=== PATIENT | female | born 1965 | race Caucasian/White ===

== ENCOUNTER 2022-08-11 09:19 | Emergency (ER) | payer OTHER, SELFPAY ==
[2022-08-11 09:26] VITALS: BP 110/82; PULSE 85; RESP 16; TEMP 36.3; O2SAT 100
--- NOTE | 2022-08-11 09:29 | ED.URI ---
HPI - URI/Sore Throat General Chief Complaint: Upper Respiratory Infection Stated Complaint: cough Time Seen by Provider: 08/11/22 09:29 Source: patient Mode of arrival: ambulatory Limitations: no limitations History of Present Illness HPI Narrative: 56-year-old female presented for complaint of coughing for 1 week and endorses difficulty sleeping at night due to the cough. She felt a rattle in her chest with the cough. Endorses about 2 days ago she spiked a fever of 101 and had a negative COVID test at home. Denies sob, wheezing, n/v/d. Taking Advil cold & sinus for symptoms. Denies sick contacts. Related Data Home Medications Medication Instructions Recorded Confirmed aspirin 81 mg tablet,delayed 81 mg PO DAILY 04/19/22 05/08/22 release (Adult Aspirin Regimen) cholecalciferol (vitamin D3) 250 250 mcg PO DAILY 04/19/22 05/08/22 mcg (10,000 unit) capsule fenofibrate 50 mg capsule 50 mg PO DAILY 04/19/22 05/08/22 multivitamin 1 tablet PO DAILY 04/19/22 05/08/22 vitamin E 200 unit capsule 200 unit PO DAILY 04/19/22 05/08/22 Allergies Allergy/AdvReac Type Severity Reaction Status Date / Time No Known Allergies Allergy Unknown Verified 05/08/22 07:38 Review of Systems Review of Systems: CONSTITUTIONAL: Denies body aches, fever, chills, or sweats. EYES: Denies visual changes, redness, or discharge. ENT: reports rhinorrhea, congestion, denies sore throat, or otalgia. CARDIOVASCULAR: Denies chest pain, palpitations, or edema. RESPIRATORY: Reports cough denies sob, wheezing. SKIN: Denies rash, itching, or wounds. MUSCULOSKELETAL: Denies back pain, joint pain, or myalgia. NEUROLOGIC: Denies headache, numbness, tingling, or weakness. All systems reviewed & are unremarkable except as noted in HPI and below PMFSH Family History Family History Father Hypertension Patient's father is in good health Diabetes mellitus Heart disease Sibling Patient's brother is in good health Mother Family history of malignant neoplasm of uterus Social History Social History Smoking status: Never smoker Alcohol intake: never Substance use: never Comments At time of signature, I have reviewed and agree with nursing past medical, surgical, social and family history unless otherwise noted. Please see nursing chart for further information. There is no relevant family history pertinent to the presenting complaint Exam Narrative: GENERAL: Well-appearing EYES: EOMI. No redness or drainage. Conjunctivae normal. ENT: Mucous membranes pink and moist. No rhinorrhea. TMs normal bilaterally. Throat normal. Uvula midline. CHEST: No respiratory distress. LCTAB HEART: Regular rate and rhythm. No murmur appreciated. ABDOMEN: Soft, nontender, nondistended, normal active bowel sounds. SKIN: Warm, dry, no rash. Capillary refill normal. Normal skin turgor. NEURO: Alert and oriented x3. Gait steady. PSYCH: Normal affect. Course Course Emergency Course: Patient is aware of diagnosis, understands and agrees to treatment plan. Anticipatory guidance given. Patient agrees to follow-up as directed and is aware of reasons to seek care at the emergency department. Portions of this record may have been created with voice recognition software Level of Care: Express Care Visit Vital Signs Vital signs: Vital Signs Temperature 97.4 F L 08/11/22 09:26 Pulse Rate 85 08/11/22 09:26 Respiratory Rate 16 08/11/22 09:26 Blood Pressure 110/82 08/11/22 09:26 Pulse Oximetry 100 08/11/22 09:26 Temperature 97.4 F L 08/11/22 09:26 Pulse Rate 85 08/11/22 09:26 Respiratory Rate 16 08/11/22 09:26 Blood Pressure 110/82 08/11/22 09:26 Pulse Oximetry 100 08/11/22 09:26 MDM - URI/Sore Throat MDM Narrative Medical decision making narrative: Advised supportive measures for bronchitis, revie
== END 2022-08-11 09:46 | disposition home or self-care (01) ==
PROVIDERS: Emergency Provider Nurse Practitioner Family; PCP Nurse Practitioner Family
DX: R05.9 Cough, unspecified (principal); J40 Bronchitis, not specified as acute or chronic
CPT/HCPCS: 99213; G0463

== ENCOUNTER → 2023-01-17 09:08 | Outpatient (CLI) | payer OTHER, SELFPAY ==
--- NOTE | ~2023-01-17 | XR_ITS ---
XR knee LT min 4V 01/17/2023 09:28 Indication: Left knee pain Procedure: 4 views left knee Comparison: No prior studies for comparison. Findings: No fracture, subluxation or dislocation. No significant joint effusion. No foreign bodies. No joint space narrowing. Impression: 1: No significant bone or joint abnormality. Reviewed, dictated and finalized at location L. TY SHERIFF/INVESTIGATOR Impression: 1: No significant bone or joint abnormality.
== END ==
PROVIDERS: PCP Family Medicine; Visit Provider Nurse Practitioner Family
DX: M25.562 Pain in left knee (principal)
CPT/HCPCS: 73564

== ENCOUNTER → 2023-08-29 09:23 | Outpatient (CLI) | payer OTHER, SELFPAY ==
--- NOTE | ~2023-08-29 | XR_ITS ---
XR_CERV2-3V_CR DATE: 08/29/2023 09:56 INDICATION: Neck pain TECHNIQUE: Standing AP, open-mouth and lateral views COMPARISON: None FINDINGS: C1 and C2 are normally aligned and the odontoid process is intact. No fracture or dislocati on or locked facet or prevertebral soft tissue swelling. There is mild degenerative disc disease at C3-4 and C4-5 and moderately prominent degenerative disc d isease and posterior spurring at C5-6 and C6-7. Uncovertebral joint spurring is noted, particularly at C5-6 and C6-7. IMPRESSION: Moderate cervical spondylosis; no fracture or dislocation or locked facet Reviewed, dictated and finalized at Location [facility]. Reviewed, dictated and finalized at location L.
--- NOTE | ~2023-08-29 | XR_ITS ---
XR knee LT min 4V DATE: 08/29/2023 09:56 INDICATION: Left knee pain TECHNIQUE: 4 views including crosstable lateral and sunrise COMPARISON: January 17, 2023 left knee FINDINGS: No fracture or dislocation or joint effusion. No periosteal reaction or bone destruction. N o radiopaque intra-articular loose body or chondrocalcinosis. IMPRESSION: No significant abnormality or significant change Reviewed, dictated and finalized at location L.
== END ==
PROVIDERS: PCP Nurse Practitioner Family; Visit Provider Nurse Practitioner Family
DX: M25.562 Pain in left knee (principal); M47.892 Other spondylosis, cervical region
CPT/HCPCS: 72040; 73564

== ENCOUNTER → 2023-09-06 13:24 | Outpatient (CLI) | payer OTHER, SELFPAY ==
--- NOTE | ~2023-09-06 | MR_ITS ---
MRI of the left knee Clinical history: Pain Technique: Coronal proton density and proton density-weighted images, sagittal proton-density and T2 fat-sat images, and axial proton-density fat-saturated images were acquired. Findings: Anterior and posterior cruciate ligaments are intact. Medial collateral ligament and the la teral collateral ligament complex are intact. Popliteus tendon is intact. There is extensive horizontal tear throughout the entirety of the lateral meniscus. There is associat ed developing 1.0 x 0.8 x 1.8 cm parameniscal cyst adjacent to the anterior horn of the lateral menis cus. No medial meniscal tear identified. Mild chondromalacia patella. Remaining articular cartilage is well preserved. Bone marrow signals are unremarkable. Extensor mechanism is intact. No significant joint effusion or Chaudhari's cyst. Impression: Extensive horizontal tear of the lateral meniscus with associated 1.0 x 0.8 x 1.8 cm para-meniscal cy st. Please see details above. Reviewed, dictated and finalized at [facility]. Impression: Extensive horizontal tear of the lateral meniscus with associated 1.0 x 0.8 x 1 .8 cm para-meniscal cyst. Please see details above.
== END ==
PROVIDERS: PCP Nurse Practitioner Family; Visit Provider Nurse Practitioner Family
DX: S83.282A Other tear of lateral meniscus, current injury, left knee, initial encounter (principal); X58.XXXA Exposure to other specified factors, initial encounter
CPT/HCPCS: 73721

== ENCOUNTER → 2023-09-23 10:17 | Outpatient (CLI) | payer OTHER, SELFPAY ==
--- NOTE | ~2023-09-23 | DEXA_ITS ---
Bone Density Report Name: CATRACHITO BRUNO Age: 57 Sex: Female Ethnicity: White Date of : 1965 Indication: postmenopausal; screening for osteoporosis; Referring Provider: Martina, Delfina Coleman Study: Bone densitometry was performed. Exam Date: September 23, 2023 Accession number: [id number] Bone Density: Region BMD T-score Z-score Classification AP Spine (L1-L4) 0.776 -2.5 -1.3 Osteoporosis Femoral Neck (Left) 0.766 -0.7 0.4 Normal Total Hip (Left) 0.954 0.1 0.8 Normal Femoral Neck (Right) 0.825 -0.2 0.9 Normal Total Hip (Right) 0.969 0.2 0.9 Normal Total Hip Mean 0.962 0.2 0.9 Normal World Health Organization criteria for BMD impression classify patients as: Normal (T-score at or above -1.0), Osteopenia (T-score between -1.0 and -2.5), or Osteoporosis (T-score at or below -2.5). 10-year Fracture Risk: FRAX not reported because: Some T-score for Spine Total or Hip Total or Femoral Neck at or below -2.5 Clinical Information Provided by Patient: Has used the following medications: Vitamin D, MTV Patient maximum height was 63.5 Menopause Age: 57 Drinks caffeinated beverages Onset of menses at age 17 Number of children 2 Missed period for more than 6 months in a row Impression: The patient has osteoporosis, based on the Total Spine T-score. Discussion: INCREASED RISK OF FRACTURE. BONE DENSITY IS UNDESIRABLY LOW AT ONE OR MORE SKELETAL SITES, CONSISTENT WITH POSTMENOPAUSAL OSTEOPOROSIS. This patient's lowest T-score meets the World Health Organization's (WHO) criteria for osteoporosis at one or more sites (T-score -2.5 or below). In untreated patients, the risk of osteoporotic fracture increases approximately two-fold for each 1.0 SD decrease in T-score. Low bone density is not the only risk factor for fracture; also consider factors such as patient's age, frailty or poor health, risk of falling, risk of injury, previous osteoporotic fracture, family history of osteoporosis, cigarette smoking, low body weight, etc. Not everyone with low bone mineral density has osteoporosis; osteomalacia and other metabolic bone disorders should also be considered. Patients who have osteoporosis should be evaluated for specific diseases and conditions (secondary causes) that may cause or contribute to bone loss. The [place] Association of Clinical Endocrinologists (AACE) and National Osteoporosis Foundation (NOF) recommend pharmacologic intervention for all postmenopausal women whose T-score is in this range. The patient should follow a healthful lifestyle (good nutrition with adequate calcium and vitamin D, and appropriate weight-bearing exercise). Follow-Up: Consider a repeat BMD and Vertebral Fracture Assessment (VFA) exam in 2 years or sooner if medically necessary, to reassess this patient's status.
== END ==
PROVIDERS: PCP Nurse Practitioner Family; Visit Provider Nurse Practitioner Obstetrics & Gynecology
DX: M85.88 Other specified disorders of bone density and structure, other site (principal); Z78.0 Asymptomatic menopausal state
CPT/HCPCS: 77080

== ENCOUNTER 2023-11-13 03:31 | Day surgery (SDC) | payer OTHER, SELFPAY ==
[2023-11-07 15:12] VITALS: BMI 26.1
--- NOTE | 2023-11-11 13:17 | PC.NURSE ---
Report to the Outpatient Waiting Room, entrance under the green pavilion located off [facility], at time _1130___ on date _11/13/23__. Planned Procedure Time: 1330 . Time changes happen often and if your time is changed the preop area will call you the afternoon before. - You and your visitor will be asked to self-screen and do not enter if you have any COVID symptoms. - A mask is optional within the hospital at this time. Patients may have clear liquids (water, carbonated beverages, clear teas, apple juice) until 3 hours prior to surgery with a maximum of 20 ounces. - No food from midnight until time of surgery Take the following medications with a SIP of water the morning of surgery: __NONE DO NOT STOP ANY OF YOUR OTHER PRESCRIPTION MEDICATIONS PRIOR TO SURGERY ?EXCEPT THE FOLLOWING Medications to discontinue per physician ____ASA-11/10/23; MULTIVIT 11/10/23; VITAMIN E 11/10/23 Date to take last dose Please no make-up, nail serbian, hairspray, perfume, deodorant, or body powder the day of surgery. No jewelry (including any body piercings) or valuables the day of surgery, leave them at home. Please take a shower or bath the night before, or the morning of, surgery with an antibacterial soap. Wear comfortable, loose fitting clothing. - Jewelry must be removed prior to entering the operating room. Rings and piercings that are not removed may be cut off. - The hospital will not accept responsibility for valuables. - Please leave all valuables, including medications, at home the day of surgery. If you are going home after surgery, a licensed cat driver must drive you home. - NO public transportation without another adult if you receive anesthesia. - We recommend that an adult stay with you for 24 hours following discharge. - We also recommend that you do not drive, make important decision, drink alcoholic beverages, or take any drugs that were not prescribed by your health care provider for at least 24 hours after your discharge time. Follow any additional instructions given to you from your surgeon. If you or anyone in your household have experienced Covid symptoms in the past week, please notify your surgeon or the nurse liaison at the phone number below for possible testing. Telephone instructions given to __ELIZABETH and asked if any additional questions and then verbalized understanding. Patient advised to call surgeon office or pre surgery nurse liaison [phone] if any additional questions.
[2023-11-13] VITALS (11 sets, daily range): BP systolic 96–139; BP diastolic 57–99; PULSE 63–79; RESP 10–16; TEMP 36.6–36.8; O2SAT 99–100
--- NOTE | 2023-11-13 07:17 | WPDHPUPDATE1 ---
History and Physical Update Update Date/Time: 11/13/23 07:17 History and Physical has been reviewed, including an updated exam of the patient. There are NO changes in the patient's condition. Risks, benefits, and alternatives have been discussed and questions answered. Patient agrees to proceed with procedure.
[2023-11-13] MEDS: ACETAMINOPHEN 500 MG TABLET 1000 MG PO ×2 (10:44→15:07)
[2023-11-13] MEDS: CELECOXIB 200 MG CAPSULE PO (10:44)
[2023-11-13] MEDS: LACTATED RINGERS 1,000 ML 30 ML IV CONT (11:19)
--- NOTE | 2023-11-13 11:34 | WPDANESEPPF ---
Anes - Initial Pre Proc Eval Procedure: Operation Date: 11/13/23 13:30 Proposed Procedures p Left Knee Arthroscopy, Proceed As Indicated - Memo Cerna MD Date/Time: 11/13/23 11:34 Surgeon: Memo Cerna MD Pre Op Diagnosis: left knee lateral meniscus tear, Patient Data Age: 58 Gender: F Height: 1.61 m Weight: 69.4 kg Last Vital Signs Temp 36.6 C 11/13/23 10:51 Pulse 71 11/13/23 10:51 Resp 16 11/13/23 10:51 BP 125/82 11/13/23 10:51 Pulse Ox 100 11/13/23 10:51 O2 Del Method Room Air 11/13/23 10:51 Allergies Allergy/AdvReac Type Severity Reaction Status Date / Time No Known Allergies Allergy Unknown Verified 11/13/23 10:41 Home Medications Medication Instructions Recorded Confirmed Type aspirin 81 mg tablet,delayed 81 mg PO DAILY 04/19/22 11/11/23 History release (Adult Aspirin Regimen) cholecalciferol (vitamin D3) 250 250 mcg PO DAILY 04/19/22 11/11/23 History mcg (10,000 unit) capsule multivitamin 1 tablet PO DAILY 04/19/22 11/11/23 History magnesium 1 tab-cap PO QMWF 09/04/22 11/11/23 History vitamin E 200 unit capsule 200 unit PO QMWF 09/04/22 11/11/23 History fenofibrate nanocrystallized 145 145 mg PO DAILY #90 tabs 08/29/23 11/11/23 Rx mg tablet icosapent ethyl 1 gram capsule 2 g PO BID 11/11/23 11/11/23 History Patient hx anesthesia problems: none Family hx anesthesia problems: none Results Review: All pre-operative results and documents have been reviewed as part of the pre-operative evaluation. [facility] Past Medical History Medical History Encounter to establish care Left knee pain Muscle cramp Neck pain Family History Family History Father Hypertension Patient's father is in good health Diabetes mellitus Heart disease Sibling Patient's brother is in good health Mother Family history of malignant neoplasm of uterus Social History Social History Smoking status: Never smoker Alcohol intake: current Alcohol use details: socially Substance use: never Substance use type: does not use Lack of Transportation: No Lack of Food: Never True Current Housing: I Have Housing Concerned About Future Housing: No Difficulty Paying Gas/Electric Bills: No Difficulty Paying for Meds: No Currently Unemployed: No Education: Master's Degree or Higher Difficulty w/ Childcare or Family Care: No Living arrangements: with family Spiritual care concerns: No Anes - Eval Final PreProcedure Day of Procedure 11/13/23 11:34 Patient weight: overweight Heart: regular rate and rhythm Lungs: clear to auscultation Airway: Mallampati scale class II Neurological: alert and oriented Last oral intake: >/= 8 hours ASA classification: II Emergent: no Anesthetic plan: proceed Anesthesia type and monitoring: general LMA and standard monitoring Results Review: All pre-operative results and documents have been reviewed as part of the pre-operative evaluation. Informed Consent: The patient's anesthetic plan and its attendant risks and benefits were discussed with the patient/family/POA. Questions were solicited and answers provided to the satisfaction of the patient/family/POA.
[2023-11-13] MEDS: ceFAZolin 2 GM/D5W 50 ML 2 GM/50 ML BAG IVPB (11:52)
--- NOTE | 2023-11-13 13:39 | W.PM.PROC2 ---
Procedure Note - Detailed Date of Procedure 11/13/23 Pre-op Diagnosis left knee lateral meniscus tear, Post-op Diagnosis Same Procedure Performed LEFT KNEE SCOPE Surgeon Memo Cerna MD Anesthesia General Description of Procedure PATIENT WAS TAKEN TO THE OR. LEFT LEG WAS PREPPED AND DRAPED STERILE. TROCARS WERE PLACED IN THE USUAL FASHION. CAMERA WAS INTRODUCED. THERE WAS MILD CHONDROMALACIA TO THE PATELLA FEMORAL JOINT. THERE WAS A LOT OF SYNOVITIS IN ALL COMPARTMENTS. THE MEDIAL COMPARTMENT SHOWED MILD CHONDROMALACIA TO THE MEDIAL FEMORAL CONDYLE OR PLATEAU. THERE WAS NO MEDIAL MENISCUS TEAR. THE ACL WAS INTACT. THE LATERAL MENISCUS WAS TORN AT THE MID SUBSTANCE. THE TEAR WAS RESECTED. THE LATERAL COMPARTMENT HAD GRADE MILD CHONDROMALACIA AT THE LATERAL PLATEAU. CHONDROPLASTY WAS PREFORMED. A SYNOVECTOMY WAS PREFORMED WELL. THE PATELLO FEMORAL JOINT UNDERWENT CHONDROPLASTY OVER THE PATELLA AND TROCHLEA. SYNOVECTOMY WAS PREFORMED IN THE SUPERIOR MEDIAL COMPARTMENT. THE WOUNDS WERE APPROXIMATED WITH 4.0 NYLON. STERILE DRESSING WAS APPLIED. PATIENT WAS EXTUBATED. Estimated Blood Loss 5 Complications No immediate complications Condition Stable Disposition PACU
--- NOTE | 2023-11-13 14:03 | SUR.PHASEI ---
1400: Simple mask removed.
== END 2023-11-13 16:00 | disposition home or self-care (01) ==
PROVIDERS: PCP Nurse Practitioner Family; Visit Provider Orthopaedic Surgery
PROC: (CPT 29870; principal; 2023-11-13 13:30)
DX: M23.362 Other meniscus derangements, other lateral meniscus, left knee (principal); M65.862 Other synovitis and tenosynovitis, left lower leg; M22.42 Chondromalacia patellae, left knee; Z79.82 Long term (current) use of aspirin
CPT/HCPCS: 29881; 29876; A9270; J0690; J1100; J2250; J2405; J2704; J7120